=== PATIENT | male | born 1995 | race Caucasian/White ===

== ENCOUNTER 2017-08-28 22:02 | Emergency (ER) | payer BC ==
[~2017-08-28] VITALS: Ht 190.5 cm; Wt 74.8 kg
[~2017-08-28 22:02] MED LIST: AMOCLA500 PO; DOCU100 PO; ESCI10 PO; Hydrocodone-Ap1 EA23 PO; MONT10T PO; OMEP20ER PO; PSEU120ER PO; Senna8.6 MG PO; VENL75ER PO
[2017-08-28] MEDS ORDERED: IBUP800 PO (23:50)
[2017-08-28] MEDS ORDERED: Acetaminophen-1 EAC1 PO (23:50)
== END 2017-08-29 00:17 | disposition home or self-care (01) ==
LOC: ER 22:02
DX: S43.015A Anterior dislocation of left humerus, initial encounter (principal); W01.198A Fall on same level from slipping, tripping and stumbling with subsequent striking against other object, initial encounter
CPT/HCPCS: 36415; 73020; 73030; J2405; J3010; J7030